=== PATIENT | male | born 1980 | race Two or more races ===

== ENCOUNTER 2022-02-19 21:01 | Emergency (ER) | payer SELFPAY ==
[~2022-02-19] VITALS: Ht 175.3 cm; Wt 75.7 kg
[2022-02-19 22:32] VITALS: BP 160/98
== END 2022-02-19 22:34 ==
LOC: ER 21:05
DX: Z04.6 Encounter for general psychiatric examination, requested by authority (principal); I10 Essential (primary) hypertension; V43.52XA Car driver injured in collision with other type car in traffic accident, initial encounter; Y93.89 Activity, other specified; Y92.410 Unspecified street and highway as the place of occurrence of the external cause; Y99.8 Other external cause status